=== PATIENT | male | born 1950 | race Caucasian/White ===

== ENCOUNTER → 2016-10-07 | Outpatient (CLI) | payer MEDICARE, OTHER | END | disposition home or self-care (01) | LOC: GMAB 10:50 | PROVIDERS: ATTEND Family Medicine | DX: Z12.5 Encounter for screening for malignant neoplasm of prostate (principal); I10 Essential (primary) hypertension | CPT/HCPCS: 84443; G0103 ==

== ENCOUNTER 2016-11-11 07:07 | Day surgery (SDC) | payer MEDICARE, OTHER ==
--- NOTE | 2016-11-07 09:10 | RAD ---
Study: Frontal and Lateral Views of the Chest. Indication: pre op Comparison: None. Impression: Heart size normal. Questionable mild nodularity left mid lung. Further characterization CT chest recommended. Degenerative changes of the spine noted. Electronically signed by: Guanaco Maldonado MD 11/07/2016 9:09 AM CDT
[~2016-11-11 07:07] MED LIST: BUPIVACAINE 0.25% W/EPI 50 ML VIAL INJ ONE; LACTATED RINGERS 1,000 ML ONE; SODIUM CHL 0.9% 100ML MINI-BAG 100 ML IVPB ONE; ceFAZolin SODIUM 1 GM VIAL ONE
[2016-11-11] MEDS ORDERED: fentaNYL CITRATE INJ 50 MCG/ML AMP ONE (07:33)
[2016-11-11] MEDS ORDERED: LACTATED RINGERS 1,000 ML ONE (07:33)
[2016-11-11] MEDS ORDERED: LIDOCAINE 2 % GEL 5 ML TUBE TOP ONE (07:34)
[2016-11-11] MEDS ORDERED: METOCLOPRAMIDE HCL INJ 10 MG/2 ML VIAL IV ONE (12:00)
[2016-11-11] MEDS ORDERED: PROPOFOL 200 MG/20 ML VIAL IV ONE (12:00)
[2016-11-11] MEDS ORDERED: HYDROcodone 5MG/APAP 325MG 1 EA TAB ONE (12:41)
[2016-11-11 13:40] VITALS: BP 160/79; TEMP 97.7; O2SAT 95
--- NOTE | 2016-11-11 13:58 | OP ---
DATE OF PROCEDURE: 11/11/16 PREOPERATIVE DIAGNOSIS: 1. Incarcerated umbilical hernia. 2. Right inguinal hernia. POSTOPERATIVE DIAGNOSIS: 1. Incarcerated umbilical hernia. 2. Right inguinal hernia. PROCEDURE: 1. Repair of incarcerated umbilical hernia. 2. Repair of right inguinal hernia. SURGEON: Eliezer Estrada MD. INSURANCE COUNSEL: None. ANESTHESIA: General laryngeal mask anesthesia and local infiltration of 0.25% Marcaine with epinephrine. INDICATION: The patient is a 66-year-old male who has had a mass that is mildly symptomatic at his umbilicus for probably two years. In September, he was doing some heavy lifting and developed discomfort in the right groin. He was found to have a reducible hernia. The patient was brought to the Surgical Suite today for both today after the risks, benefits and alternatives to the procedure were discussed and accepted. FINDINGS: The patient had omentum within the incarcerated umbilical hernia. No other pathology was identified. The hernia defect was approximately 1 cm in diameter. The inguinal hernia was a cord lipoma and generalized weakness of the floor of the canal, which was a repaired as a large direct hernia. PROCEDURE: After adequate general endotracheal anesthesia was obtained, the patient was prepped and draped in the usual sterile manner. At this point, a surgical time-out was taken, noting that the patient had been marked in the right groin. At this point, the infraumbilical area was infiltrated with 0.25% Marcaine with epinephrine. A curvilinear incision was fashioned and carried down through the subcutaneous tissue to the midline fascia using electrocautery and blunt dissection. The hernia sac was identified. It was dissected free circumferentially using blunt dissection and electrocautery. It was incised at its neck and the omentum was dissected free from the hernia sac. It was then reduced below the floor of the canal. The hernia sac was dissected free from the skin of the umbilicus and removed from the field. It was not sent for pathological evaluation. At this point, hemostasis was noted to be adequate. The defect was closed with four interrupted [id number] sutures of #1 PDS. When this was done, the fat was dissected free from the floor of the fascia using blunt dissection and electrocautery. When this was done, hemostasis was noted to be adequate. The wound was irrigated with saline and an 8 by 5 oval shaped Surgimesh patch was placed over the repair and sutured in place with interrupted 2-0 Prolene and Vicryl sutures. When this was done, again, the wound was irrigated with saline. Hemostasis was noted to be adequate. At this point, the umbilicus was sutured to the abdominal wall and mesh using figure-of- eight suture of 2-0 Prolene. When this was done, the subcutaneous tissue was reapproximated in layers with interrupted 3-0 Vicryl sutures. The skin edges were approximated with a stapler. When this was done, a sterile towel was placed over the incision. At this time, injection in the right lower quadrant was performed in an oblique manner. An oblique incision was made with a sharp knife. Dissection was carried down to the external oblique fascia using electrocautery and blunt dissection. Hemostasis was obtained with electrocautery. The self-retaining retractor was placed at this level. The external oblique fascia was then opened in the direction of the fibers through the external ring, which was from the cord and from the floor of the canal and and self-retaining retractor was placed at this level. The cord was then dissected free from the floor of the canal using blunt dissection. the bulge in the floor of the canal was identified without a discrete herniation. The cord was then explored with a lipoma identified and isolated and dissected free proximally and distally and clamped with ligatures. When this was done, no indirect hernia sac was identified outside the floor of the canal. The floor of the canal was palpated through the internal inguinal ring and no direct herniation was found, but it was noted to be bulging. At this time, it was transected. A Surgimesh patch was introduced under the defect and sutured in place with interrupted 2-0 Vicryl sutures. When this was done, again, the wound was irrigated with saline. Hemostasis was noted to be adequate. There had been some bleeding which was controlled with pressure on the inferior aspect of the repair. When this was done, the Surgimesh patch was sutured around the cord in the usual manner with interrupted 2-0 Vicryl sutures. Again, the wound was irrigated with saline. Hemostasis was noted to be adequate. The cord was placed back in the canal. The external oblique fascia was then closed with running 3-0 Vicryl suture. The cord and subcutaneous tissue above, below and lateral to the incision were infiltrated with local anesthesia. The Kerri's fascia was approximated with interrupted 3-0 Chromic suture. Skin edges were approximated with skin stapler. Sterile pressure dressing was applied. The scrotum was checked for position of the testicle. The patient was awakened and taken to the Recovery Room in good and stable condition. Estimated blood loss for both procedures was less than 100 mL. All sponge, needle and instrument counts were correct. #[id number] [facility]
== END 2016-11-11 13:25 | disposition home or self-care (01) ==
LOC: AMB 07:07
PROVIDERS: ATTEND Surgery
DX: K42.0 Umbilical hernia with obstruction, without gangrene (principal); K40.90 Unilateral inguinal hernia, without obstruction or gangrene, not specified as recurrent; E78.5 Hyperlipidemia, unspecified; Z87.891 Personal history of nicotine dependence; Z79.899 Other long term (current) drug therapy; R00.1 Bradycardia, unspecified
CPT/HCPCS: 00840; 36415; 49505; 49587; 71020; 80053; 81001; 85025; 93005; C1781; J0690; J2765; J3010; J3490; J7050; J7120

== ENCOUNTER → 2017-08-08 | Outpatient (CLI) | payer MEDICARE, OTHER | LOC: GMAB 10:37 | PROVIDERS: ATTEND Family Medicine | DX: R41.9 Unspecified symptoms and signs involving cognitive functions and awareness (principal); R41.82 Altered mental status, unspecified ==

== ENCOUNTER → 2017-08-14 | Outpatient (CLI) | payer MEDICARE, OTHER ==
--- NOTE | 2017-08-14 11:35 | MRI ---
EXAM DESCRIPTION: Brain w/oContrast CLINICAL HISTORY: 66 years, Male, ALTERED MENTAL STATUS COMPARISON: None available FINDINGS: Triplanar sequences. Diffusion-weighted sequences camilo acute infarct. Gradient sequence does not show hemorrhage. Age-appropriate appearance of ventricles and sulci. No significant microischemic changes periventricular white matter. Minimal mucosal thickening ethmoid air cells. Other visualized paranasal sinuses clear IMPRESSION: Evaluation the brain within normal limits for age. No acute infarct, hemorrhage or mass. Electronically signed by: Huy Landon MD 08/14/2017 11:33 AM INSIDE POLISHER
== END | disposition home or self-care (01) ==
LOC: MRI 11:56
PROVIDERS: ATTEND Family Medicine
DX: R41.82 Altered mental status, unspecified (principal)

== ENCOUNTER 2018-10-15 14:19 | Observation (INO) | payer MEDICARE, OTHER ==
[2018-10-15] MEDS ORDERED: ASPIRIN (CHEWABLE) 81 MG TAB PO ONE (14:46)
--- NOTE | 2018-10-15 14:48 | ED.PDOC ---
History of Present Illness - General Chief Complaint: Cardiovascular Problem Time Seen by Provider: 10/15/18 14:37 Source: patient Exam Limitations: no limitations - History of Present Illness Initial Comments: Patient presents with chest pain for 24 hours. It is midsternal, nonradiating, sharp, constant, no exacerbating nor alleviating factors, no previous episodes, associated with dyspnea on exertion. The patient denies history of tobacco use, hyperlipidemia, DM, or bipedal edema. He had one brother he got "stents". No other complaints. Timing/Duration: 24 hours Severity: moderate Worsening Factors: nothing Associated Symptoms: other - as in HPI Allergies/Adverse Reactions: Allergies NO KNOWN ALLERGY Allergy (Verified 10/15/18 15:25) Home Medications: Ambulatory Orders Pantoprazole Tablet [Protonix] 40 mg PO DAILY 11/07/16 Review of Systems - Review of Systems Constitutional: States: no symptoms reported EENTM: States: no symptoms reported Respiratory: States: no symptoms reported Cardiology: States: see HPI Gastrointestinal/Abdominal: States: no symptoms reported Genitourinary: States: no symptoms reported Musculoskeletal: States: no symptoms reported Skin: States: no symptoms reported Neurological: States: no symptoms reported Endocrine: States: no symptoms reported Hematologic/Lymphatic: States: no symptoms reported Past Medical History (General) - Patient Medical History Hx Congestive Heart Failure: No Hx Diabetes: No Hx MRSA: No Family Medical History - Family History Father Family History: No Known Living Status: Physical Exam - Physical Exam General Appearance: Alert Eye Exam: bilateral normal Ears, Nose, Throat: normal ENT inspection Neck: non-tender, full range of motion, supple Respiratory: lungs clear, normal breath sounds Cardiovascular/Chest: irregularly irregular Gastrointestinal/Abdominal: normal bowel sounds, non tender, soft Back Exam: normal inspection, no CVA tenderness Extremity: normal range of motion, non-tender, normal inspection Neurologic: no motor/sensory deficits, alert, normal mood/affect, oriented x 3 Skin Exam: normal color Lymphatic: no adenopathy Progress - Progress Progress: 10/15/18 17:05 Laboratory Tests 10/15/18 10/15/18 10/15/18 14:50 14:50 14:50 WBC 7.6 RBC 4.65 L Hgb 15.0 Hct 44.6 MCV 96.0 H MCH 32.3 H MCHC 33.6 RDW 13.3 Plt Count 179 MPV 9.9 Absolute Neuts (auto) 5.40 Absolute Lymphs (auto) 1.50 Absolute Monos (auto) 0.60 Absolute Eos (auto) 0.10 Absolute Basos (auto) 0.00 Neutrophils % 70.9 Lymphocytes % 19.8 L Monocytes % 8.2 Eosinophils % 0.7 L Basophils % 0.4 PT 11.0 H INR 1.10 PTT (SP) 26.7 Sodium 137 Potassium 3.4 L Chloride 101 Carbon Dioxide 26 Anion Gap 13.4 BUN 15 Creatinine 1.04 BUN/Creatinine Ratio 14.4 Random Glucose 119 H Serum Osmolality 275.8 Calcium 9.1 Magnesium 1.9 Total Bilirubin 1.4 H AST 24 ALT 19 Alkaline Phosphatase 50 Creatine Kinase 146 CK-MB (CK-2) 3.0 CK-MB (CK-2) % Not Reportable Troponin I < 0.02 B-Natriuretic Peptide 113.0 H Serum Total Protein 7.9 Albumin 4.2 Globulin 3.7 H Albumin/Globulin Ratio 1.1 EKG showed atrial fibrillation. Troponin negative. Patient given Cardizem 25 mg IV x one and the rate went to less than 100. He was admitted for transition to oral medications and possible anticoagulation. The patient also received NS one liter IV bolus after his systolic went down to 91 after the first Cardizem bolus. Patient voiced understanding and agreement with the plan. Departure - Departure Clinical Impression: Atrial fibrillation Disposition: Admit Patient Departure Forms: ED Discharge - Pt. Copy, Patient Portal Self Enrollment Diet: resume usual diet Activity: increase activity as tolerated Referrals: Howard Medrano MD [Active Staff] - 1-2 Weeks Home Medications: Ambulatory Orders Pantoprazole Tablet [Protonix] 40 mg PO DAILY 11/07/16
--- NOTE | 2018-10-15 14:57 | RAD ---
EXAM DESCRIPTION: Chest,1 View CLINICAL HISTORY: dyspnea COMPARISON: Chest x-ray November 07, 2016. FINDINGS: Portable frontal view the thorax. No consolidation, effusion or pneumothorax is demonstrated. Heart and mediastinum within normal limits. No acute osseous pathology. IMPRESSION: Negative portable chest. Electronically signed by: Marco A Ewing MD 10/15/2018 2:53 PM QUALITY ASSURANCE NURSE
[2018-10-15] MEDS ORDERED: SODIUM CHLORIDE 0.9% 1000ML 1,000 ML IVS ONE (16:03)
--- NOTE | 2018-10-15 17:54 | HP ---
SUPERVISING PHYSICIAN: Rodger Lopez MD CHIEF COMPLAINT: Chest pain. HISTORY OF PRESENT ILLNESS: This is a 68 year-old male patient who called his primary care physician, Dr. Reji Medrano, this morning complaining of some chest tightness and shortness of breath. He said it had been going on since yesterday. He said the pain was midsternal, it did not radiate. It did not worsen with exertion and he has had no previous episodes similar to this. He said he does have a brother who recently had 2 stints but other than that, his medical history is mostly unremarkable. Dr. Medrano recommended that he go to the Emergency Room and he came to the Emergency Room and his initial vital signs showed a temperature of 97.5 with pulse rate of 153, blood pressure 150/100, respiratory rate 22. O2 saturation was 95% on room air. His lab was drawn and his CBC was unremarkable. His PT/PTT were within normal limits. Chemistries showed a sodium of 137,potassium 3.4. His remaining electrolytes were within normal limits. His blood glucose was slightly elevated at 119. He did have a total bilirubin of 1.4. BNP was 113 but his troponin was less than 0.02. Chest x-ray shows negative portable chest. He was given some IV Cardizem and his blood pressure dropped to 101/78 but his heart rate came down to 108 and he was admitted to the Floor. PAST MEDICAL HISTORY: 1. Acid reflux. 2. Hyperlipidemia/ 3. Depression. PAST SURGICAL HISTORY: 1. Hernia repair. 2. Rotator cuff repair. CURRENT MEDICATIONS: 1. Celexa. 2. Pantoprazole.. ALLERGIES: No known drug allergies. FAMILY HISTORY: Positive for CVA, cardiac stints. SOCIAL HISTORY: He is retired, he lives in [place]. He is . He has 3 children. He quit smoking cigarettes in 1969. He drinks alcohol on a social basis only. REVIEW OF SYSTEMS: GENERAL: Denies fever, fatigue or weight changes. HEENT: Negative for sinus symptoms, ear pain, vision changes or sore throat. RESPIRATORY: Positive for dyspnea, negative for wheezing or cough. CARDIAC: As per history of present illness. GI: Negative for nausea, vomiting, diarrhea or constipation. GENITOURINARY: Negative for hematuria, dysuria or polyuria. MUSCULOSKELETAL: Negative for myalgias, arthralgias. SKIN: Negative for lesions or rashes. NEUROLOGICAL: Negative for headaches, dizziness or seizures. PHYSICAL EXAMINATION: VITAL SIGNS: Temperature 97.5, heart rate running between 198 and 118. His blood pressure is 125/57, respiratory rate 20, 02 saturation 97%. GENERAL: This is a 68 year-old male patient sitting up in his hospital bed. He is in no acute distress. HEENT: Normocephalic and atraumatic. Pupils are equal and reactive. Oropharynx is clear. NECK: Supple without masses. No discernible jugular venous distention. CHEST: Essentially clear to auscultation bilaterally. There is equal rise and fall of the chest with inspiration and expiration. 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 ABDOMEN: Soft, nondistended, non-tender. Bowel sounds are positive. EXTREMITIES: No cyanosis, clubbing, or edema. NEUROLOGIC: He is awake, alert, and oriented x3. Cranial nerves II through XII are grossly intact. LABORATORY: Labs and films are as per the history of present illness. ASSESSMENT: 1. Atrial fibrillation, new onset, in a patient with no significant cardiac history. 2. Chest pain, most likely secondary to #1. 3. Hyperlipidemia. 4. Gastroesophageal reflux disease. 5. Depression. PLAN: We will place the patient in observation. Will give him an additional dose of Cardizem IV and he will be on 30 mg of Cardizem every 6 hours. Will adjust that as necessary. Will also give him a dose of potassium, recheck his labs in the morning. I have consulted Dr. Melendez, welcome desk agent, to see him here in the hospital tomorrow when he is in clinic. I have also put him on Eliquis for anticoagulation therapy and Protonix for ulcer prophylaxis. Hopefully, he can be discharged tomorrow with recommendations by Dr. Melendez. We will continue to monitor him closely and follow as needed. [facility][id number] [facility]
[2018-10-15] MEDS ORDERED: NITROGLYCERIN 0.4 MG 25 EA TAB SL PRN (18:13)
[2018-10-15] MEDS ORDERED: SODIUM CHLORIDE 0.9% (FLUSH) 10 ML SYG IV PRN (18:13)
[2018-10-15] MEDS ORDERED: ACETAMINOPHEN 325 MG TAB PO PRN ×2 (18:13→20:57)
[2018-10-15] MEDS ORDERED: IV SET AND CAP CHANGE INJ INJ SCH (18:30)
[2018-10-15] MEDS ORDERED: diltiaZEM HCL TAB 30 MG TAB PO ONE (19:06)
[2018-10-15] MEDS ORDERED: POTASSIUM CHLORIDE 20 MEQ TAB PO ONE (20:55)
[2018-10-15] MEDS ORDERED: MORPHINE SULFATE INJ 10 MG/ML VIAL IV PRN (20:57)
[2018-10-15] MEDS: APIXABAN 2.5 MG TAB PO SCH (21:18)
[2018-10-15] MEDS: SODIUM CHLORIDE 0.9% (FLUSH) 10 ML SYG IV SCH (21:19)
[2018-10-16] MEDS: diltiaZEM HCL TAB 30 MG TAB PO SCH ×2 (00:26→06:28)
[2018-10-16] MEDS: PANTOPRAZOLE SODIUM IV 40 MG VIAL IV SCH ×2 (06:28→06:42)
[2018-10-16] MEDS: SODIUM CHLORIDE 0.9% (FLUSH) 10 ML SYG IV SCH (09:06)
[2018-10-16] MEDS: APIXABAN 2.5 MG TAB PO SCH (09:06)
[2018-10-16 13:48] VITALS: BP 93/52; TEMP 97.9; O2SAT 96
--- NOTE | 2018-10-16 20:53 | DS ---
SUPERVISING PHYSICIAN: Rodger Lopez M.D. DISCHARGE DIAGNOSIS: 1. Atrial fibrillation, new onset, in a patient with no significant cardiac history. 2. Chest pain, most likely secondary to #1. 3. Hyperlipidemia. 4. Gastroesophageal reflux disease. 5. Depression. HISTORY OF PRESENT ILLNESS: This is a 68 year-old male patient who called his primary care physician, Dr. Reji Medrano, on the morning of admission complaining of some chest tightness and shortness of breath. He said it had been going on since the previous day. The pain was midsternal, it did not radiate. It did not worsen with exertion and he had had no previous episodes similar to this. He said he does have a brother who recently had 2 stents but other than that, his medical history is mostly unremarkable. Dr. Medrano recommended that he go to the Emergency Room. When he was in the Emergency Room, his initial vital signs showed a temperature of 97.5, pulse rate of 153, blood pressure 150/100, respiratory rate 22. O2 saturation was 95% on room air. His cardiac rhythm was atrial fibrillation on the monitor. His CBC, PT and PTT were unremarkable. Chemistries showed a sodium of 137,potassium 3.4. His remaining electrolytes were within normal limits. His blood glucose was slightly elevated at 119. He did have a total bilirubin of 1.4. BNP was 113 but his troponin was less than 0.02. Chest x-ray showed negative portable chest. He was given some IV Cardizem and his blood pressure did drop to 101/78. His heart rate came down to 108 and he was admitted to the hospital. HOSPITAL COURSE: After he was brought to the floor he was given some more Cardizem to bring down his heart rate as his heart rate had gone up to he 130s again, and shortly thereafter he was started on the short-acting Cardizem 30 mg every 6 hours. He was also started on Eliquis for anticoagulation. He converted to normal sinus rhythm about midnight last night. He was continued on the 30 mg of Cardizem every [address] Melendez, pet food deboner, was consulted today. He saw him in an office visit. Dr. Melendez recommended the patient be put on 240 mg of Cardizem CD. He was also to continue on Eliquis twice daily. Dr. Melendez also set him up for a stress test and an echocardiogram at his office in [place] on . He has had no further complaints of chest pain. 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 We will discharge the patient home. LABORATORY: Repeat lab on Corbin Carmichael was unremarkable. He did have 3 sets of cardiac enzymes and they were all negative. His triglycerides were 41, LDL was 110.5, HDL was 52. Total bilirubin as 1. RADIOLOGY: Chest x-ray was negative for any acute cardiopulmonary process. DISCHARGE PLAN: The patient will be discharged home in stable condition. He is to resume his previous diet and medications. In addition to his routine medicines he is to take Eliquis and Diltiazem, and those have been sent to the Pharmacy. He is to increase his activity as tolerated. He is to followup with Dr. Downing, his primary care physician, in the next 1 to 2 weeks. He is to return to the hospital or followup with Dr. Downing for any problems or complications. DISCHARGE MEDICATIONS: 1. Pantoprazole. 2. Citalopram. 3. Ranitidine. 4. Apixaban. 5. Diltiazem. #[id number] [facility]
== END 2018-10-16 15:30 | disposition home or self-care (01) ==
LOC: ER 14:19 → MS 17:53
PROVIDERS: ADMIT Nurse Practitioner Acute Care; ATTEND Nurse Practitioner Acute Care
DX: I48.91 Unspecified atrial fibrillation (principal); R07.2 Precordial pain; R06.02 Shortness of breath; E78.5 Hyperlipidemia, unspecified; K21.9 Gastro-esophageal reflux disease without esophagitis; F32.9 Major depressive disorder, single episode, unspecified; Z79.899 Other long term (current) drug therapy; Z87.891 Personal history of nicotine dependence
CPT/HCPCS: 96361; 96374; 96376; J7030; 82553 ×3; 80053 ×2; 80061; 36415 ×2; 85025 ×2; 82550 ×3; 83735 ×2; 85730; 85610; 84484 ×3; 83880; 71045; 94760; 99285; 93005 ×3; G0378

== ENCOUNTER 2019-10-10 16:18 | Emergency (ER) | payer OTHER ==
[2019-10-10] MEDS ORDERED: SODIUM CHLORIDE 0.9% (FLUSH) 10 ML SYG IV PRN (16:26)
--- NOTE | 2019-10-10 18:39 | ED.PDOC ---
History of Present Illness - General Chief Complaint: Chest Pain/NC Stated Complaint: L sternal CP since 1000 Time Seen by Provider: 10/10/19 16:26 - History of Present Illness Initial Comments: c/o having 6/10 burning L sided chest pain since 1 day , non radiating denies for any sob or nusea or vomiting or fever ro chills Pt also c/o dizziness for few days off and on Pt also c/o dry cough for few days Allergies/Adverse Reactions: Allergies NO KNOWN ALLERGY Allergy (Verified 10/10/19 16:39) Home Medications: Ambulatory Orders Pantoprazole Tablet [Protonix] 40 mg PO DAILY 11/07/16 Apixaban [Eliquis] 5 mg PO BID #60 tab 10/16/18 Citalopram Hydrobromide [Celexa] 20 mg PO DAILY 10/16/18 Diltiazem HCl Coated Beads [Cardizem Cd] 240 mg PO DAILY #30 cap 10/16/18 Benzonatate 200 mg PO TID #12 cap 10/10/19 Review of Systems - Review of Systems Constitutional: States: no symptoms reported EENTM: States: no symptoms reported Respiratory: States: no symptoms reported Cardiology: States: see HPI Gastrointestinal/Abdominal: States: no symptoms reported Genitourinary: States: no symptoms reported Musculoskeletal: States: no symptoms reported Skin: States: no symptoms reported Neurological: States: no symptoms reported Endocrine: States: no symptoms reported Hematologic/Lymphatic: States: no symptoms reported Past Medical History (General) - Patient Medical History Hx Seizures: No Hx Stroke: No Hx Asthma: No Hx of COPD: No Hx Cardiac Disorders: Yes - A fib Hx Congestive Heart Failure: No Hx Pacemaker: No Hx Hypertension: Yes Hx Diabetes: No Hx Gastroesophageal Reflux: Yes Hx Cancer: No Hx MRSA: No Surgical History: other - Vaccination History Hx Tetanus, Diphtheria Vaccination: No Hx Influenza Vaccination: No Hx Pneumococcal Vaccination: No Immunizations Up to Date: No - Social History Hx Tobacco Use: Yes Hx Alcohol Use: Yes Hx Substance Use: No Hx Substance Use Treatment: No Hx Depression: No Hx Physical Abuse: No Hx Emotional Abuse: No - Female History Patient is a Female of Child Bearing Age (10 -59 yrs old): No Patient : No Family Medical History - Family History Father Family History: No Known Living Status: Physical Exam - Physical Exam General Appearance: Alert, Comfortable Eyes, Ears, Nose, Throat Exam: PERRL/EOMI, normal ENT inspection Neck: full range of motion, supple, normal inspection Respiratory: chest non-tender, lungs clear, normal breath sounds, no respiratory distress, no accessory muscle use Cardiovascular/Chest: regular rate, rhythm, no edema, no gallop, no JVD, no murmur Gastrointestinal/Abdominal: soft, tenderness Extremity: normal range of motion, non-tender, normal inspection, no pedal edema Neurologic: no motor/sensory deficits, alert, normal mood/affect, oriented x 3 Skin Exam: normal color Lymphatic: no adenopathy Progress - Progress Progress: 10/10/19 18:41 Pt with heart score of 1 , normal EKG twice with 2 sets of normal Troponin , unlikely to have cardiac chest pain During the visit saw the pt multiple time answer all the concern of the pt , reviewed labs , CT scan and X-ray with the pt. Told the pt that if symptoms gets worse , please come back to ER Follow up PCP as soon as possible 10/12/19 22:04 - EKG/XRAY/CT EKG: Sinus Departure - Departure Clinical Impression: Chest pain, Dizziness, Cough Time of Disposition: 18:39 Disposition: Discharge to Home or Self Care Condition: Good Departure Forms: ED Discharge - Pt. Copy, Patient Portal Self Enrollment Instructions: DI for Chest Pain Diet: resume usual diet Activity: increase activity as tolerated, walking as tolerated Referrals: TAMY DELGADILLO MD [Family Provider] - 1-2 Weeks Prescriptions: Benzonatate 200 mg PO TID #12 cap Home Medications: Ambulatory Orders Pantoprazole Tablet [Protonix] 40 mg PO DAILY 11/07/16 Apixaban [Eliquis] 5 mg PO BID #60 tab 10/16/18 Citalopram Hydrobromide [Celexa] 20 mg PO DAILY 10/16/18 Diltiazem HCl Coated Beads [Cardizem Cd] 240 mg PO DAILY #30 cap 10/16/18 Benzonatate 200 mg PO TID #12 cap 10/10/19 Additional Instructions: Follow up ER if pain comes back or any otheer symptoms
--- NOTE | 2019-10-10 18:52 | RAD ---
EXAM DESCRIPTION: Chest,1 View CLINICAL HISTORY: 69 years Male sob COMPARISON: 10/15/2018 FINDINGS: The cardiomediastinal silhouette appears unremarkable. No consolidating infiltrates or pleural effusions. No pneumothorax. IMPRESSION: No acute abnormality is identified. 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
--- NOTE | 2019-10-10 20:24 | CT ---
EXAM DESCRIPTION: Head CLINICAL HISTORY: 69 years Male weakness COMPARISON: None TECHNIQUE: Images were obtained in axial, sagittal, and coronal planes. This exam was performed according to our departmental dose-optimization program which includes use of Automated Exposure Control, adjustment of the mA and/or kV according to patient size and/or use of iterative reconstruction technique. FINDINGS: Ventricular system appears normal. Mild prominence of the cortical sulci. No abnormal areas of increased or decreased attenuation are seen involving the brain parenchyma. No extra-axial fluid collections noted. No evidence for skull fracture. Symmetric aeration mastoid air cells bilaterally. Unremarkable paranasal sinuses. IMPRESSION: No acute intracranial abnormality. No evidence for hemorrhage, mass lesion, or large acute infarction. Electronically signed by: Arleth Hoff MD 10/10/2019 8:22 PM [facility]
--- NOTE | 2019-10-10 20:31 | CT ---
PROCEDURE: CT Abdomen/Pelvis w/wo Contrast CLINICAL HISTORY: 69 years Male Pain TECHNIQUE: Contiguous axial images obtained through the abdomen and pelvis before and after IV contrast administration. Coronal and sagittal reformatted images provided. This CT exam was performed according to our departmental dose-optimization program, which includes one or more of the following dose reduction techniques: automated exposure control, adjustment of the mA and/or kV according to patient size, and/or use of iterative reconstruction technique. COMPARISON: No prior exams provided for comparison. FINDINGS: There are no renal, ureteral, or bladder calculi. There is no hydronephrosis or perinephric stranding on either side. No enhancing renal lesion. Small bilateral parapelvic renal cysts The appendix is normal. There is no bowel inflammation, obstruction, free intraperitoneal air, or ascites. Minimal bibasilar atelectasis. The liver, biliary tree, gallbladder, pancreas, spleen, adrenal glands, and urinary bladder are normal. Atherosclerosis without abdominal aortic aneurysm or retroperitoneal hemorrhage. Chronic degenerative changes throughout the spine without acute fracture or aggressive osseous lesion. IMPRESSION: No acute abdominal or pelvic findings. Electronically signed by: Archana Gonzalez MD 10/10/2019 8:29 PM [facility]
[2019-10-10] MEDS: PANTOPRAZOLE SODIUM IV 40 MG VIAL IV ONE ×2 (21:07→21:11)
[2019-10-10 21:32] VITALS: BP 165/82; TEMP 98.9; O2SAT 98
== END 2019-10-10 21:33 | disposition home or self-care (01) ==
LOC: ER 16:18
DX: R07.9 Chest pain, unspecified (principal); I10 Essential (primary) hypertension; K21.9 Gastro-esophageal reflux disease without esophagitis; I48.91 Unspecified atrial fibrillation; Z79.01 Long term (current) use of anticoagulants; Z79.899 Other long term (current) drug therapy; Z87.891 Personal history of nicotine dependence

== ENCOUNTER 2020-06-20 17:23 | Emergency (ER) | payer OTHER ==
[2020-06-20] MEDS ORDERED: ASPIRIN TABLET 325 MG TAB PO ONE (17:34)
--- NOTE | 2020-06-20 19:00 | RAD ---
PROCEDURE:XR CHEST 2 VIEWS HISTORY:left anteroir chest pain COMPARISON: October 10, 2019 FINDINGS: The heart appears unremarkable. The lungs are clear there is no alveolar consolidation, effusion or pneumothorax. The osseous structures and soft tissues are normal. IMPRESSION: No acute cardiopulmonary process. Electronically signed by: Rich Andersen MD 06/20/2020 6:59 PM CDT
[2020-06-20] MEDS ORDERED: IBUPROFEN 200 MG TAB PO ONE (19:06)
[2020-06-20] MEDS ORDERED: CYCLOBENZAPRINE HCL 10 MG TAB PO ONE (19:06)
--- NOTE | 2020-06-20 19:12 | ED.PDOC ---
History of Present Illness - General Chief Complaint: Chest Pain/AR Stated Complaint: chest discomfort Time Seen by Provider: 06/20/20 17:24 Source: patient Exam Limitations: no limitations - History of Present Illness Initial Comments: The patient is a 69-year-old male presented emergency room secondary to chest pain for the last week to 2 weeks. Chest pain is to the left lateral chest and to the left shoulder. They are worse with movement of the left extremity. Sometimes it is worse with coughing. It does not appear to be made worse with walking quickly or going up steps. No diaphoresis. No central chest pain. No palpitations. No shortness of breath. No known immediate coronavirus exposure. The patient does have a cardiac history. Timing/Duration: unsure Severity: moderate Improving Factors: nothing Worsening Factors: movement Associated Symptoms: denies symptoms, chest pain Allergies/Adverse Reactions: Allergies NO KNOWN ALLERGY Allergy (Verified 10/10/19 16:39) Home Medications: Ambulatory Orders Pantoprazole Tablet [Protonix] 40 mg PO DAILY 11/07/16 Apixaban [Eliquis] 5 mg PO BID #60 tab 10/16/18 Citalopram Hydrobromide [Celexa] 20 mg PO DAILY 10/16/18 Diltiazem HCl Coated Beads [Cardizem Cd] 240 mg PO DAILY #30 cap 10/16/18 Benzonatate 200 mg PO TID #12 cap 10/10/19 Review of Systems - Review of Systems Constitutional: States: no symptoms reported EENTM: States: no symptoms reported Respiratory: States: no symptoms reported Cardiology: States: chest pain Gastrointestinal/Abdominal: States: no symptoms reported Genitourinary: States: no symptoms reported Musculoskeletal: States: see HPI Skin: States: no symptoms reported Neurological: States: no symptoms reported Endocrine: States: no symptoms reported All other Systems: No Change from Baseline Past Medical History (General) - Patient Medical History Hx Seizures: No Hx Stroke: No Hx Asthma: No Hx of COPD: No Hx Cardiac Disorders: Yes - A fib Hx Congestive Heart Failure: No Hx Pacemaker: No Hx Hypertension: Yes Hx Diabetes: No Hx Gastroesophageal Reflux: Yes Hx Cancer: No Hx MRSA: No Surgical History: no surgical history - Vaccination History Hx Tetanus, Diphtheria Vaccination: No Hx Influenza Vaccination: No Hx Pneumococcal Vaccination: No - Social History Hx Tobacco Use: Yes Hx Alcohol Use: Yes Hx Substance Use: No Hx Substance Use Treatment: No Hx Depression: No Hx Physical Abuse: No Hx Emotional Abuse: No - Female History Patient is a Female of Child Bearing Age (10 -59 yrs old): No Patient : No Family Medical History - Family History Father Family History: No Known Living Status: Physical Exam - Physical Exam General Appearance: Alert, Anxious, No apparent distress Eye Exam: bilateral normal Ears, Nose, Throat: hearing grossly normal, normal pharynx Neck: full range of motion, supple Respiratory: lungs clear, normal breath sounds, no respiratory distress, no accessory muscle use, other - Distal third of the left pectoralis muscle shows obvious muscle spasm and tenderness to palpation. Cardiovascular/Chest: normal peripheral pulses, regular rate, rhythm, no edema Peripheral Pulses: radial,right: 2+, radial,left: 2+ Gastrointestinal/Abdominal: non tender, soft Rectal Exam: deferred Back Exam: no CVA tenderness, no vertebral tenderness Extremity: no pedal edema, no calf tenderness, normal capillary refill, other - The patient has significant pain in the left shoulder with abduction. 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 tested, alert, normal mood/affect, oriented x 3 Skin Exam: normal color Comments: Vital Signs - 24 hr 06/20/20 06/20/20 06/20/20 17:23 17:35 18:23 Temperature 97.5 F L 97.5 F L Pulse Rate [ 59 L 59 L 52 L pulse ox] Respiratory 16 16 16 Rate Blood Pressure 191/94 140/82 [Left Arm] O2 Sat by Pulse 98 93 L Oximetry 06/20/20 19:00 Temperature Pulse Rate [ 52 L pulse ox] Respiratory 16 Rate Blood Pressure 149/80 [Left Arm] O2 Sat by Pulse 94 L Oximetry Progress - Progress Progress: 06/20/20 19:13 The patient is a 69-year-old male presented to emergency room secondary to chest pain and shoulder pain of an extended duration that appears to be musculoskeletal in nature. The patient has palpable pain to the left lateral pectoralis muscle and recurrence of significant pain with abduction of the left shoulder. The patient appears to have strained his pectoralis muscle as well as one of his rotator cuff muscles. He does need to do range of motion and stretching exercises for these areas. He has been instructed how to do this. Topical heat may prove beneficial. An oral anti-inflammatory such as Advil or Aleve a couple times a day with food may also prove beneficial. Laboratory work, EKG and chest x-ray are reassuring. He has deferred the use of a muscle relaxer at this point secondary to a poor reaction to 1 in the past. Follow-up with primary care doctor within the next week for repeat evaluation. jayne [id number] - Results/Orders Results/Orders: Laboratory Tests 06/20/20 06/20/20 06/20/20 17:50 17:50 17:50 WBC 7.3 RBC 4.12 L Hgb 13.6 L Hct 38.9 L MCV 94.4 H MCH 32.9 H MCHC 34.9 RDW 13.8 Plt Count 202 MPV 8.9 Absolute Neuts (auto) 5.10 Absolute Lymphs (auto) 1.60 Absolute Monos (auto) 0.50 Absolute Eos (auto) 0.10 Absolute Basos (auto) 0.00 Neutrophils % 69.1 Lymphocytes % 22.0 Monocytes % 7.0 Eosinophils % 1.3 Basophils % 0.6 PT 10.9 INR 1.10 PTT (SP) 25.4 D-Dimer, Quantitative < 131.0 L Sodium 139 Potassium 4.1 Chloride 100 L Carbon Dioxide 29 Anion Gap 14.1 BUN 20 H Creatinine 1.30 BUN/Creatinine Ratio 15.4 Random Glucose 103 Serum Osmolality 280.4 Calcium 9.1 Magnesium 2.0 Total Bilirubin 0.5 AST 23 ALT 25 Alkaline Phosphatase 46 Creatine Kinase 96 CK-MB (CK-2) 2.8 CK-MB (CK-2) % Not Reportable Troponin I < 0.02 B-Natriuretic Peptide 138.0 H Serum Total Protein 7.1 Albumin 4.3 Globulin 2.8 Albumin/Globulin Ratio 1.5 Amylase 80 Lipase 28 TSH 3.54 Coronavirus testing is negative. Chest x-ray shows no acute pathology. EKG shows normal sinus bradycardia at 56 bpm. Mild right axis. Normal R wave progression. No definitive ST segment or T wave changes indicative of acute ischemia. Possible mild Q waves in anterior leads. Normal QT interval. Departure - Departure Clinical Impression: Strain of muscle(s) and tendon(s) of the rotator cuff of left shoulder, initial encounter Strain of left pectoralis muscle Qualifiers: Encounter type: initial encounter Qualified Code(s): S29.011A - Strain of muscle and tendon of front wall of thorax, initial encounter Disposition: Discharge to Home or Self Care Condition: Fair Departure Forms: ED Discharge - Pt. Copy, Patient Portal Self Enrollment Diet: regular diet Activity: increase activity as tolerated Referrals: Howard Medrano MD [Primary Care Provider] - 1-2 Weeks Home Medications: Ambulatory Orders Pantoprazole Tablet [Protonix] 40 mg PO DAILY 11/07/16 Apixaban [Eliquis] 5 mg PO BID #60 tab 10/16/18 Citalopram Hydrobromide [Celexa] 20 mg PO DAILY 10/16/18 Diltiazem HCl Coated Beads [Cardizem Cd] 240 mg PO DAILY #30 cap 10/16/18 Benzonatate 200 mg PO TID #12 cap 10/10/19 Additional Instructions: 06/20/20 19:13 The patient is a 69-year-old male presented to emergency room secondary to chest pain and shoulder pain of an extended duration that appears to be musculoskeletal in nature. The patient has palpable pain to the left lateral pectoralis muscle and recurrence of significant pain with abduction of the left shoulder. The patient appears to have strained his pectoralis muscle as well as one of his rotator cuff muscles. He does need to do range of motion and stretching exercises for these areas. He has been instructed how to do this. Topical heat may prove beneficial. An oral anti-inflammatory such as Advil or Aleve a couple times a day with food may also prove beneficial. Laboratory work, EKG and chest x-ray are reassuring. He has deferred the use of a muscle relaxer at this point secondary to a poor reaction to 1 in the past. Follow-up with primary care doctor within the next week for repeat evaluation.
[2020-06-20 19:39] VITALS: BP 144/80; TEMP 98; O2SAT 97
== END 2020-06-20 19:39 | disposition home or self-care (01) ==
LOC: ER 17:23
DX: S29.011A Strain of muscle and tendon of front wall of thorax, initial encounter (principal); S46.012A Strain of muscle(s) and tendon(s) of the rotator cuff of left shoulder, initial encounter; I48.91 Unspecified atrial fibrillation; I10 Essential (primary) hypertension; K21.9 Gastro-esophageal reflux disease without esophagitis; R00.1 Bradycardia, unspecified; Z20.828 Contact with and (suspected) exposure to other viral communicable diseases; Z79.01 Long term (current) use of anticoagulants; Z79.899 Other long term (current) drug therapy; X58.XXXA Exposure to other specified factors, initial encounter; Y92.9 Unspecified place or not applicable

== ENCOUNTER → 2020-08-28 | Outpatient (CLI) | payer MEDICARE, OTHER | LOC: YCFC.O 17:03 | PROVIDERS: ATTEND Nurse Practitioner Family | DX: L01.00 Impetigo, unspecified (principal) ==

== ENCOUNTER 2020-09-19 09:38 | Emergency (ER) | payer MEDICARE, OTHER ==
[2020-09-19 09:47] VITALS: TEMP 97.6
[2020-09-19] MEDS ORDERED: SODIUM CHLORIDE 0.9% (FLUSH) 10 ML SYG IV PRN (09:58)
[2020-09-19] MEDS ORDERED: ASPIRIN TABLET 325 MG TAB PO ONE (09:58)
--- NOTE | 2020-09-19 10:02 | ED.PDOC ---
History of Present Illness - General Chief Complaint: Chest Pain/PA Stated Complaint: chest pain Time Seen by Provider: 09/19/20 09:55 Source: patient, RN notes reviewed, Vital Signs reviewed, old records Exam Limitations: no limitations - History of Present Illness Initial Comments: 69 yo male with PMH of CAD, pAfib presents to ED with 2 hour h/o central CP. States pain began while getting out of a tractor. Pain is now improved. Has felt SOB. Denies fever, chills, cough, nausea or abdominal pain. Has not taken anything for pain at home and declines any pain medications at this time. Ball Racker is Dr. Melendez. Allergies/Adverse Reactions: Allergies NO KNOWN ALLERGY Allergy (Verified 10/10/19 16:39) Home Medications: Ambulatory Orders Pantoprazole Tablet [Protonix] 40 mg PO DAILY 11/07/16 Apixaban [Eliquis] 5 mg PO BID #60 tab 10/16/18 Citalopram Hydrobromide [Celexa] 40 mg PO DAILY 10/16/18 Diltiazem HCl Coated Beads [Cardizem Cd] 240 mg PO DAILY #30 cap 10/16/18 Review of Systems - Review of Systems Constitutional: Denies: chills, fever EENTM: Denies: ear pain, throat pain, throat swelling Respiratory: States: short of breath. Denies: cough Cardiology: States: chest pain. Denies: edema, palpitations, syncope Gastrointestinal/Abdominal: Denies: abdominal pain, nausea, vomiting Musculoskeletal: Denies: back pain, neck pain Neurological: Denies: anxiety, headache, paresthesia All other Systems: Reviewed and Negative Past Medical History (General) - Patient Medical History Hx Seizures: No Hx Stroke: No Hx Asthma: No Hx of COPD: No Hx Cardiac Disorders: Yes Hx Congestive Heart Failure: No Hx Pacemaker: No Hx Hypertension: Yes Hx Diabetes: No Hx Gastroesophageal Reflux: Yes Hx Cancer: No Hx MRSA: No - Vaccination History Hx Tetanus, Diphtheria Vaccination: No Hx Influenza Vaccination: No Hx Pneumococcal Vaccination: Yes - Social History Hx Tobacco Use: Yes Hx Alcohol Use: Yes Hx Substance Use: No Hx Substance Use Treatment: No Hx Depression: No Hx Physical Abuse: No Hx Emotional Abuse: No - Female History Patient : No Family Medical History - Family History Father Family History: No Known Living Status: Physical Exam - Physical Exam General Appearance: Alert, Comfortable, No apparent distress Neck: non-tender, full range of motion, supple Respiratory: chest non-tender, lungs clear, normal breath sounds, no respiratory distress Cardiovascular/Chest: regular rate, rhythm, no edema, no murmur Gastrointestinal/Abdominal: non tender, soft, no pulsatile mass Extremity: normal range of motion, non-tender, normal inspection Neurologic: no motor/sensory deficits, alert, normal mood/affect Skin Exam: normal color, warm/dry Progress - Progress Progress: 09/19/20 10:53 Recheck patient. Pt denies pain or SOB. I have discussed initial labs. He agrees with repeat troponin in ED. 09/19/20 12:27 Pt presents to ED for CP. Pain has resolved w/o medication in ED. Troponin negative x 2 with no sign of ischemia on EKG. Pt feels comfortable going home and will f/u with his clothing examiner in 1-2 days for continued evaluation. SRP given. - Results/Orders Results/Orders: EKG- Sinus bradycardia, rate 56, nml QRS interval, no ST abnormality CHEST XRAY Mildly enlarged heart with bibasilar atelectasis 09/19/20 09:58 Sodium Chloride 0.9% (Flush) [Saline Flush Syringe] 10 ml IV PRN PRN EKG Stat Pulse Ox Stat 09/19/20 09:59 EKG Assessment ONCE Pulse Oximetry Assessment DAILY 09/19/20 11:56 CARDIAC [employer] Stat Laboratory Results - last 24 hr 09/19/20 09/19/20 10:00 11:56 WBC 4.7 L RBC 4.41 L Hgb 13.9 L Hct 41.6 L MCV 94.3 H MCH 31.5 H MCHC 33.4 RDW 13.5 Plt Count 181 MPV 8.9 Absolute Neuts (auto) 2.70 Absolute Lymphs (auto) 1.50 Absolute Monos (auto) 0.40 Absolute Eos (auto) 0.10 Absolute Basos (auto) 0.00 Neutrophils % 57.8 Lymphocytes % 31.1 Monocytes % 8.7 Eosinophils % 1.5 Basophils % 0.9 PT 11.0 H INR 1.11 PTT (SP) 26.9 Sodium 137 Potassium 4.4 Chloride 102 Carbon Dioxide 28 Anion Gap 11.4 L BUN 17 Creatinine 1.00 BUN/Creatinine Ratio 17.0 Random Glucose 96 Serum Osmolality 275.2 Calcium 9.1 Magnesium 2.1 Creatine Kinase 120 111 CK-MB (CK-2) 3.4 3.2 CK-MB (CK-2) % Not Reportable Troponin I < 0.02 < 0.02 B-Natriuretic Peptide 72.9 Departure - Departure Clinical Impression: Chest pain Qualifiers: Chest pain type: unspecified Qualified Code(s): R07.9 - Chest pain, unspecified Time of Disposition: 12:26 Disposition: Discharge to Home or Self Care Condition: Good Departure Forms: ED Discharge - Pt. Copy, Patient Portal Self Enrollment Instructions: DI for Chest Pain, Chest Pain (DC) Diet: resume usual diet Activity: increase activity as tolerated Referrals: Howard Medrano MD [Primary Care Provider] - 1-2 Days Home Medications: Ambulatory Orders Pantoprazole Tablet [Protonix] 40 mg PO DAILY 11/07/16 Apixaban [Eliquis] 5 mg PO BID #60 tab 10/16/18 Citalopram Hydrobromide [Celexa] 40 mg PO DAILY 10/16/18 Diltiazem HCl Coated Beads [Cardizem Cd] 240 mg PO DAILY #30 cap 10/16/18
--- NOTE | 2020-09-19 11:03 | RAD ---
Study: Single Frontal Radiograph of the Chest. Indication:chest pain Comparison: June 20, 2020 Impression: Heart size mildly enlarged. Mild right basilar atelectasis versus developing pneumonia. No pleural effusion or pneumothorax. Lung apices not included in their entirety within the field of view on the frontal image. No acute osseous abnormality. Electronically signed by: Guanaco Maldonado MD 09/19/2020 11:02 AM [facility]
[2020-09-19 12:04] VITALS: BP 136/84
[2020-09-19 12:33] VITALS: O2SAT 95
== END 2020-09-19 12:33 | disposition home or self-care (01) ==
LOC: ER 09:38
DX: R07.9 Chest pain, unspecified (principal); R06.02 Shortness of breath; R00.1 Bradycardia, unspecified; I48.0 Paroxysmal atrial fibrillation; I10 Essential (primary) hypertension; I25.10 Atherosclerotic heart disease of native coronary artery without angina pectoris; K21.9 Gastro-esophageal reflux disease without esophagitis; Z87.891 Personal history of nicotine dependence; Z79.899 Other long term (current) drug therapy; Z79.01 Long term (current) use of anticoagulants

== ENCOUNTER → 2020-10-13 | Outpatient (CLI) | payer MEDICARE, OTHER ==
--- NOTE | 2020-10-13 16:27 | RAD ---
EXAM DESCRIPTION: Knee,Right Complete CLINICAL HISTORY: 70 years Male PAIN IN RIGHT KNEE COMPARISON: None. TECHNIQUE: Four views of the right knee. FINDINGS: No acute fractures or dislocations are identified. No osseous destructive lesions. There is mild spurring of the tibial eminences. The knee joint spaces appear fairly well maintained. There is some osseous fragmentation and spurring along the superior margin of the patella which appears chronic. There is mild lateral subluxation of the patella likely chronic. There appears to be a small amount of fluid in the knee joint. IMPRESSION: No acute fracture is identified. Electronically signed by: Vinod Lovelace MD 10/13/2020 4:[address] [facility]
== END ==
LOC: YCFC.O 16:00
PROVIDERS: ATTEND Nurse Practitioner
DX: M25.561 Pain in right knee (principal)